=== PATIENT | female | born 1995 | race African-American/Black ===

== ENCOUNTER 2017-04-24 09:44 | Emergency (ER) | payer BC ==
[~2017-04-24] VITALS: Ht 160 cm; Wt 77.6 kg
[~2017-04-24 09:44] MED LIST: IBUPROFEN400 MG; ZITHROMAX PO; ZITHROMAX1 G/PKT PO
[2017-04-24 10:15] LABS: URINE SOURCE CLEAN CATCH
[2017-04-24 10:26] LABS: URINE APPEARANCE CLEAR; URINE BILIRUBIN NEG (NEG); URINE BLOOD NEG (NEG); URINE COLOR YELLOW; URINE GLUCOSE NEG (NEG); URINE KETONE 2+ (NEG); URINE LEUKOCYTE ESTERASE NEG (NEG); URINE NITRATE NEG (NEG); URINE PH 5.5 (5-8); URINE PROTEIN 1+ (NEG); URINE SPECIFIC GRAVITY 1.026 (1.003-1.035); URINE UROBILINOGEN 0.2 MG/DL (NEG)
[2017-04-24 10:28] LABS: URBCS1 AUWI 0-2 /[HPF] (0-2); URINE BACTERIA AUWI NEG (NEGATIVE); URINE SQUAMOUS EPITHELIAL CELL FEW /[HPF]; UWBCS1 AUWI 0-2 (0-5)
[2017-04-24 10:38] LABS: CULTURE INDICATED? NO
[2017-04-27 07:28] LABS: CHLAMYDIA TRACH Not Detected (Not Detected); N GONOR Not Detected (Not Detected)
== END 2017-04-24 11:35 | disposition home or self-care (01) ==
LOC: CED 09:44 → CFTX 09:44
PROVIDERS: Nurse Practitioner
DX: R10.2 Pelvic and perineal pain (principal); N89.8 Other specified noninflammatory disorders of vagina
CPT/HCPCS: 81003; 84703; 87491; 87591; 87808; 87905; 99284